=== PATIENT | female | born 1970 | race Caucasian/White ===

== ENCOUNTER → 2018-02-21 | Outpatient (CLI) | payer OTHER ==
[~2018-02-21] MED LIST: Bactrim 400-801 EACH PO; CYCL10 PO; Cleocin HCl300 MG PO; DICL25ER PO; HYDACE5 PO; HYDGUAL120 PO; IBUP200; IBUPROFEN; KETO10 PO; NAPR250; NAPR500 PO; Naprosyn500 MG PO; Norco 5-325 Ta1 EACH PO; Percocet 5-3251 EACH PO; RXHYDGUAS PO; RXSULTRIDS PO; SULTRIDS PO
== END | disposition home or self-care (01) ==
LOC: LAB SRC 10:19 → LAB SHORT 10:19
DX: Z51.81 Encounter for therapeutic drug level monitoring (principal); M54.5 Low back pain; Z79.899 Other long term (current) drug therapy
CPT/HCPCS: G0480

== ENCOUNTER 2019-03-15 19:32 | Emergency (ER) | payer OTHER ==
[~2019-03-15] VITALS: Ht 165.1 cm; Wt 83.9 kg
[2019-03-15] MEDS ORDERED: NAPROXEN500 MG PO (22:14)
== END 2019-03-15 23:12 | disposition home or self-care (01) ==
LOC: ER 19:32
DX: S76.112A Strain of left quadriceps muscle, fascia and tendon, initial encounter (principal); S76.111A Strain of right quadriceps muscle, fascia and tendon, initial encounter; W01.0XXA Fall on same level from slipping, tripping and stumbling without subsequent striking against object, initial encounter; Z79.899 Other long term (current) drug therapy; F17.200 Nicotine dependence, unspecified, uncomplicated
CPT/HCPCS: 73562-LT; 73562-RT; 99283-25; A9270-GY